=== PATIENT | female | born 1995 | race African-American/Black ===

== ENCOUNTER 2016-10-03 14:31 | Emergency (ER) | payer MEDICAID ==
[~2016-10-03] VITALS: Ht 165.1 cm; Wt 50.0 kg
[~2016-10-03 14:31] MED LIST: AMOX500C PO; DICL50TA3 PO
[2016-10-03 14:32] VITALS: BP 138/61; PULSE 78; RESP 17; TEMP 98.2; O2SAT 98
== END 2016-10-03 17:18 | disposition left against medical advice (07) ==
LOC: NED 14:31
DX: R51 Headache (principal)
CPT/HCPCS: 99281

== ENCOUNTER 2016-12-04 12:39 | Emergency (ER) | payer MEDICAID ==
[~2016-12-04] VITALS: Ht 165.1 cm; Wt 60.0 kg
[2016-12-04 12:41] VITALS: BP 104/52; PULSE 105; RESP 17; TEMP 99.2; O2SAT 99
--- NOTE | 2016-12-04 12:52 | PD ---
HPI . 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 She tells me she took Midol and it improved. She has been passing more blood than usual and large clots. She reports b/l pelvic pain L>R. She denies any history of STDs or pelvic inflammatory disease. She admits to a chance of . Patient describes the pain as crampy and rates it as a 10/10. She denies any nausea, vomiting, chest pain, shortness of breath, diarrhea, urinary changes, cold or flu symptoms. PFSH Past Medical History ?: Unknown Social History Alcohol Use: No Tobacco Use: No Allergies-Medications (Allergen,Severity, Reaction): Coded Allergies: No Known Allergies (Unverified , 12/04/16) Reported Meds & Prescriptions Reported Meds & Active Scripts Active Ciprofloxacin (Ciprofloxacin HCl) 500 Mg Tab 500 Mg PO BID 10 Days Review of Systems General / Constitutional: No: Fever Eyes: No: Visual changes HENT: No: Headaches Cardiovascular: No: Chest Pain or Discomfort Respiratory: No: Shortness of Breath Gastrointestinal: Positive: Abdominal Pain (pelvic pain l>r) Genitourinary: No: Dysuria Musculoskeletal: No: Pain Skin: No Rash Neurologic: No: Weakness Psychiatric: No: Depression Endocrine: No: Polydipsia Hematologic/Lymphatic: No: Easy Bruising Physical Exam Narrative GENERAL: AAO x 3, no acute distress, Well-nourished, well-developed patient. SKIN: Warm and dry. No visible rashes or bruising. HEAD: Normocephalic and atraumatic. EYES: No scleral icterus. No injection or drainage. EOM intact, PERRLA ENT: No nasal drainage noted. Mucous membranes pink. Airway patent. NECK: Supple, trachea midline. No JVD. CARDIOVASCULAR: Regular rate and rhythm without murmurs, gallops, or rubs. RESPIRATORY: Breath sounds equal bilaterally. No accessory muscle use. No rhonchi or rales. GASTROINTESTINAL: Abdomen soft, + Left mid abdominal and LLQ tenderness to light palpation some guarding on the left mid/lower quadrant, right is tender as well, but not as significant, normoactive bowel sounds PELVIC: Lizeth RN present: + blood in vaginal canal, no visible vaginal discharge, no cervical motion tenderness EXTREMITIES: No cyanosis or edema. BACK: Nontender without obvious deformity. No CVA tenderness. PSYCH: AAO x 3, normal affect. Data Data Last Documented VS Vital Signs Date Time Temp Pulse Resp B/P Pulse Ox O2 Delivery O2 Flow Rate FiO2 12/04/16 14:47 16 12/04/16 12:41 99.2 105 104/52 99 Orders Ketorolac Inj (Toradol Inj) (12/04/16 13:00) Complete Blood Count With Diff (12/04/16 12:59) Comprehensive Metabolic Panel (12/04/16 12:59) Urinalysis - C+S If Indicated (12/04/16 12:59) Iv Access Insert/Monitor (12/04/16 12:59) Ed Urine Pregnancytest Poc (12/04/16 12:59) Urine Culture (12/04/16 13:00) Lactic Acid Sepsis Protocol (12/04/16 13:44) Blood Culture (12/04/16 13:44) Ct Abd/Pel W Iv Contrast(Rout) (12/04/16 14:19) Oral Contrast - Adult (12/04/16 14:26) Gc And Chlamydia Pcr (12/04/16 14:54) Wet Prep Profile (12/04/16 14:54) Iohexol 350 Inj (Omnipaque 350 Inj) (12/04/16 15:41) Ceftriaxone Inj (Rocephin Inj) (12/04/16 16:15) Labs Laboratory Tests Test 12/04/16 12/04/16 12/04/16 13:00 13:58 14:50 White Blood Count 20.7 TH/MM3 Red Blood Count 4.59 MIL/MM3 Hemoglobin 13.0 GM/DL Hematocrit 38.9 % Mean Corpuscular Volume 84.9 FL Mean Corpuscular Hemoglobin 28.3 PG Mean Corpuscular Hemoglobin 33.3 % Concent Red Cell Distribution Width 13.2 % Platelet Count 278 TH/MM3 Mean Platelet Volume 7.8 FL Neutrophils (%) (Auto) 88.5 % Lymphocytes (%) (Auto) 5.4 % Monocytes (%) (Auto) 5.6 % Eosinophils (%) (Auto) 0.3 % Basophils (%) (Auto) 0.2 % Neutrophils # (Auto) 18.3 TH/MM3 Lymphocytes # (Auto) 1.1 TH/MM3 Monocytes # (Auto) 1.2 TH/MM3 Eosinophils # (Auto) 0.1 TH/MM3 Basophils # (Auto) 0.0 TH/MM3 CBC Comment DIFF FINAL Differential Comment Urine Color YELLOW Urine Turbidity HAZY Urine pH 7.5 Urine Specific [place] 1.025 Urine Protein 30 mg/dL Urine Glucose (UA) NEG mg/dL Urine Ketones 10 mg/dL Urine Occult Blood MOD Urine Nitrite NEG Urine Bilirubin NEG Urine Urobilinogen 8.0 MG/DL Urine Leukocyte Esterase LARGE Urine RBC 9 /hpf Urine WBC 61 /hpf Urine Squamous Epithelial 25 /hpf Cells Urine Bacteria RARE /hpf Urine Mucus FEW /lpf Microscopic Urinalysis Comment CULTURE INDICATED Sodium Level 137 MEQ/L Potassium Level 3.5 MEQ/L Chloride Level 105 MEQ/L Carbon Dioxide Level 23.0 MEQ/L Anion Gap 9 MEQ/L Blood Urea Nitrogen 5 MG/DL Creatinine 0.77 MG/DL Estimat Glomerular Filtration 116 ML/MIN Rate Random Glucose 95 MG/DL Calcium Level 8.8 MG/DL Total Bilirubin 0.7 MG/DL Aspartate Amino Transf 11 U/L (AST/SGOT) Alanine Aminotransferase 12 U/L (ALT/SGPT) Alkaline Phosphatase 85 U/L Total Protein 7.0 GM/DL Albumin 3.3 GM/DL Lactic Acid Level 0.8 mmol/L Clue Cells (Wet Prep) NONE SEEN Vaginal Trichomonas (Wet Prep) NONE SEEN Vaginal Yeast (Wet Prep) NONE SEEN MDM Medical Decision Making Medical Screen Exam Complete: Yes Emergency Medical Condition: Yes Medical Record Reviewed: Yes Differential Diagnosis PID, tuboovarian abscess, Narrative Course 21 yr old female here with c/o increased vaginal bleeding during menses and left mid/lower abdominal pain for 1 day. On examination she has significant tenderness to the left mid and lower quadrant with some guarding. She has no other abn. Labs and CT scan ordered: Last Impressions Abdomen/Pelvis CT 12/04/16 1419 Signed Impressions: Service Date/Time: Sunday, December 04, 2016 15:30 - CONCLUSION: No acute intra-abdominal process. Scoliosis of the thoracolumbar spine. Marciano Hernandez MD Laboratory Tests Test 12/04/16 12/04/16 12/04/16 13:00 13:58 14:50 White Blood Count 20.7 TH/MM3 Red Blood Count 4.59 MIL/MM3 Hemoglobin 13.0 GM/DL Hematocrit 38.9 % Mean Corpuscular Volume 84.9 FL Mean Corpuscular Hemoglobin 28.3 PG Mean Corpuscular Hemoglobin 33.3 % Concent Red Cell Distribution Width 13.2 % Platelet Count 278 TH/MM3 Mean Platelet Volume 7.8 FL Neutrophils (%) (Auto) 88.5 % Lymphocytes (%) (Auto) 5.4 % Monocytes (%) (Auto) 5.6 % Eosinophils (%) (Auto) 0.3 % Basophils (%) (Auto) 0.2 % Neutrophils # (Auto) 18.3 TH/MM3 Lymphocytes # (Auto) 1.1 TH/MM3 Monocytes # (Auto) 1.2 TH/MM3 Eosinophils # (Auto) 0.1 TH/MM3 Basophils # (Auto) 0.0 TH/MM3 CBC Comment DIFF FINAL Differential Comment Urine Color YELLOW Urine Turbidity HAZY Urine pH 7.5 Urine Specific [place] 1.025 Urine Protein 30 mg/dL Urine Glucose (UA) NEG mg/dL Urine Ketones 10 mg/dL Urine Occult Blood MOD Urine Nitrite NEG Urine Bilirubin NEG Urine Urobilinogen 8.0 MG/DL Urine Leukocyte Esterase LARGE Urine RBC 9 /hpf Urine WBC 61 /hpf Urine Squamous Epithelial 25 /hpf Cells Urine Bacteria RARE /hpf Urine Mucus FEW /lpf Microscopic Urinalysis Comment CULTURE INDICATED Sodium Level 137 MEQ/L Potassium Level 3.5 MEQ/L Chloride Level 105 MEQ/L Carbon Dioxide Level 23.0 MEQ/L Anion Gap 9 MEQ/L Blood Urea Nitrogen 5 MG/DL Creatinine 0.77 MG/DL Estimat Glomerular Filtration 116 ML/MIN Rate Random Glucose 95 MG/DL Calcium Level 8.8 MG/DL Total Bilirubin 0.7 MG/DL Aspartate Amino Transf 11 U/L (AST/SGOT) Alanine Aminotransferase 12 U/L (ALT/SGPT) Alkaline Phosphatase 85 U/L Total Protein 7.0 GM/DL Albumin 3.3 GM/DL Lactic Acid Level 0.8 mmol/L Clue Cells (Wet Prep) NONE SEEN Vaginal Trichomonas (Wet Prep) NONE SEEN Vaginal Yeast (Wet Prep) NONE SEEN Her WBC is significantly elevated, but she has no signs of sepsis. Lactic acid normal. Urine appears with infection. This could be a case of pyelonephritis. CT scan without any acute abn. GC pcr pending. Rocephin 1g administered in the ED. Will treat patient for pyelonephritis upon discharge. If GC pcr positive, will add azithromycin prior to discharge. 1716: GC PRC still pending; discussed with patient if positive we will notify her and call in Rx, she is in agreement. I explained condition with her and importance of taking abx. Patient verbalized understanding of instructions, questions were answered, and thanked me for their care. I advised them if their condition worsens, please return to the nearest emergency room for further care. Diagnosis Primary Impression: Left sided abdominal pain Additional Impression: Pyelonephritis Patient Instructions: General Instructions Additional Instructions: Please return to emergency department if your symptoms return or worsen. Follow up with your primary care provider. Take medications as prescribed. Med/Other Pt SpecificInfo: Prescription(s) given Scripts Ciprofloxacin 500 Mg [id number] Mg PO BID 10 Days Ref 0 Prov:Irwin Aquino MD 12/04/16 Disposition: 01 DISCHARGE HOME Condition: Stable Maria Luisa Gonzales December 04, 2016 12:52
[2016-12-04] MEDS ORDERED: KETOROLAC TROMETHAMINE 60 MG/2 ML (IM) VIAL IM ONE (13:00)
[2016-12-04 13:24] LABS: AUTOMATED NEUTROPHIL # 18.3 TH/MM3 (1.8-7.7); BASOPHIL % 0.2 % (0.0-2.0); EOSINOPHIL # 0.1 TH/MM3 (0-0.4); EOSINOPHIL % 0.3 % (0.0-4.0); HEMATOCRIT 38.9 % (35.0-46.0); HEMO FLAGS DIFF FINAL; LYMPH % 5.4 % (9.0-44.0); LYMPHOCYTE # 1.1 TH/MM3 (1.0-4.8); MEAN CELL VOLUME 84.9 FL (80.0-100.0); MEAN CORPUSCULAR HEMOGLOBIN 28.3 PG (27.0-34.0); MEAN CORPUSCULAR HGB CONC 33.3 % (32.0-36.0); MONO % 5.6 % (0.0-8.0); NEUT % 88.5 % (16.0-70.0); PLATELET COUNT 278 TH/MM3 (150-450); RED BLOOD COUNT 4.59 MIL/MM3 (4.00-5.30); RED CELL DISTRIBUTION WIDTH 13.2 % (11.6-17.2); WHITE BLOOD COUNT 20.7 TH/MM3 (4.0-11.0)
[2016-12-04 13:38] LABS: BACTERIA, URINE RARE /hpf; BLOOD, URINE MOD (NEG); COMMENT (UR) CULTURE INDICATED; CULTURE IF INDICATED CULTURE INDICATED; GLUCOSE,URINE NEG (NEG); KETONE, URINE 10 mg/dL (NEG); MUCUS URINE FEW /lpf (OCC); NITRITE,URINE NEG (NEG); PH, URINE 7.5 (5.0-8.5); SQUAMOUS EPITHELIAL CELL URINE 25 /hpf (0-5); URINE COLOR YELLOW (YELLW/STRAW)
[2016-12-04 13:52] LABS: ANION GAP 9 MEQ/L (5-15); AST (GOT) 11 U/L (16-38); BLOOD UREA NITROGEN 5 MG/DL (7-18); CHLORIDE 105 MEQ/L (98-107); GLOMERULAR FILTRATION RATE 116 ML/MIN (>89); POTASSIUM 3.5 MEQ/L (3.5-5.1); SODIUM (NA) 137 MEQ/L (136-145)
[2016-12-04 13:56] LABS: ALKALINE PHOSPHATASE 85 U/L (45-117); ALT (GPT) 12 U/L (9-42); TOTAL BILIRUBIN ADULT 0.7 MG/DL (0.2-1.0)
[2016-12-04 14:47] VITALS: RESP 16
--- NOTE | 2016-12-04 15:26 | PD ---
Physical Exam Narrative Patient was seen and examined with my workforce development assistant. On examination patient has mild to moderate tenderness on palpation left mid abdomen. No rebound tenderness. No mass. Data Data Last Documented VS Vital Signs Date Time Temp Pulse Resp B/P Pulse Ox O2 Delivery O2 Flow Rate FiO2 12/04/16 14:47 16 12/04/16 12:41 99.2 105 104/52 99 Orders Ketorolac Inj (Toradol Inj) (12/04/16 13:00) Complete Blood Count With Diff (12/04/16 12:59) Comprehensive Metabolic Panel (12/04/16 12:59) Urinalysis - C+S If Indicated (12/04/16 12:59) Iv Access Insert/Monitor (12/04/16 12:59) Ed Urine Pregnancytest Poc (12/04/16 12:59) Urine Culture (12/04/16 13:00) Lactic Acid Sepsis Protocol (12/04/16 13:44) Blood Culture (12/04/16 13:44) Ct Abd/Pel W Iv Contrast(Rout) (12/04/16 14:19) Oral Contrast - Adult (12/04/16 14:26) Gc And Chlamydia Pcr (12/04/16 14:54) Wet Prep Profile (12/04/16 14:54) Labs Laboratory Tests Test 12/04/16 12/04/16 13:00 13:58 White Blood Count 20.7 TH/MM3 Red Blood Count 4.59 MIL/MM3 Hemoglobin 13.0 GM/DL Hematocrit 38.9 % Mean Corpuscular Volume 84.9 FL Mean Corpuscular Hemoglobin 28.3 PG Mean Corpuscular Hemoglobin 33.3 % Concent Red Cell Distribution Width 13.2 % Platelet Count 278 TH/MM3 Mean Platelet Volume 7.8 FL Neutrophils (%) (Auto) 88.5 % Lymphocytes (%) (Auto) 5.4 % Monocytes (%) (Auto) 5.6 % Eosinophils (%) (Auto) 0.3 % Basophils (%) (Auto) 0.2 % Neutrophils # (Auto) 18.3 TH/MM3 Lymphocytes # (Auto) 1.1 TH/MM3 Monocytes # (Auto) 1.2 TH/MM3 Eosinophils # (Auto) 0.1 TH/MM3 Basophils # (Auto) 0.0 TH/MM3 CBC Comment DIFF FINAL Differential Comment Urine Color YELLOW Urine Turbidity HAZY Urine pH 7.5 Urine Specific [place] 1.025 Urine Protein 30 mg/dL Urine Glucose (UA) NEG mg/dL Urine Ketones 10 mg/dL Urine Occult Blood MOD Urine Nitrite NEG Urine Bilirubin NEG Urine Urobilinogen 8.0 MG/DL Urine Leukocyte Esterase LARGE Urine RBC 9 /hpf Urine WBC 61 /hpf Urine Squamous Epithelial 25 /hpf Cells Urine Bacteria RARE /hpf Urine Mucus FEW /lpf Microscopic Urinalysis Comment CULTURE INDICATED Sodium Level 137 MEQ/L Potassium Level 3.5 MEQ/L Chloride Level 105 MEQ/L Carbon Dioxide Level 23.0 MEQ/L Anion Gap 9 MEQ/L Blood Urea Nitrogen 5 MG/DL Creatinine 0.77 MG/DL Estimat Glomerular Filtration 116 ML/MIN Rate Random Glucose 95 MG/DL Calcium Level 8.8 MG/DL Total Bilirubin 0.7 MG/DL Aspartate Amino Transf 11 U/L (AST/SGOT) Alanine Aminotransferase 12 U/L (ALT/SGPT) Alkaline Phosphatase 85 U/L Total Protein 7.0 GM/DL Albumin 3.3 GM/DL Lactic Acid Level 0.8 mmol/L MDM Supervised Visit with GEOFFREY: Yes Scripts No Active Prescriptions or Reported Meds Disposition: 01 DISCHARGE HOME Condition: Stable Irwin Aquino MD December 04, 2016 15:26
[2016-12-04] MEDS ORDERED: IOHEXOL 350 MG/ML 10 ML VIAL (for RAD DIAG) IV ONE (15:41)
--- NOTE | 2016-12-04 16:03 | RADRPT ---
EXAM DATE/TIME: 12/04/2016 15:30 [facility] COMPARISON: No previous studies available for comparison. INDICATIONS : Lower abdomen pain and abdnormal vaginal bleeding for two days. IV CONTRAST: 77 cc Omnipaque 350 (iohexol) IV ORAL CONTRAST: Prescribed oral contrast ingested. RADIATION DOSE: 5.61 CTDIvol (mGy) MEDICAL HISTORY : None SURGICAL HISTORY : None. ENCOUNTER: Initial ACUITY: 2 days PAIN SCALE: 8/10 LOCATION: Bilateral lower quadrant TECHNIQUE: Volumetric scanning of the abdomen and pelvis was performed. Using automated exposure control and ad justment of the mA and/or kV according to patient size, radiation dose was kept as low as reasonably achievable to obtain optimal diagnostic quality images. FINDINGS: LOWER LUNGS: The visualized lower lungs are clear. LIVER: Homogeneous density without lesion. There is no dilation of the biliary tree. No calcified gallston es. SPLEEN: Normal size without lesion. PANCREAS: Within normal limits. KIDNEYS: Normal in size and shape. There is no mass, stone or hydronephrosis. ADRENAL GLANDS: Within normal limits. VASCULAR: There is no aortic aneurysm. BOWEL/MESENTERY: The stomach, small bowel, and colon demonstrate no acute abnormality. There is no free intraperitone al air or fluid. ABDOMINAL WALL: Within normal limits. RETROPERITONEUM: There is no lymphadenopathy. BLADDER: No wall thickening or mass. REPRODUCTIVE: Within normal limits. INGUINAL: There is no lymphadenopathy or hernia. MUSCULOSKELETAL: Scoliosis of the thoracolumbar spine is noted. CONCLUSION: No acute intra-abdominal process. Scoliosis of the thoracolumbar spine. Marciano Hernandez MD on December 04, 2016 at 16:00 Board Certified Radiologist. This report was verified electronically.
[2016-12-04] MEDS ORDERED: cefTRIAXone INJ 1,000 MG in SODIUM CHLORIDE 0.9% INJ 100 ML IV ONE (16:15)
[2016-12-04] MEDS ORDERED: CIPR500T2 PO (17:13)
[2016-12-04 18:02] LABS: CHLAMYDIA PCR NOT DETECTED (NOT DETECT); NEISSERIA PCR DETECTED (NOT DETECT)
== END 2016-12-04 17:32 | disposition home or self-care (01) ==
LOC: NEPD 12:39
DX: N12 Tubulo-interstitial nephritis, not specified as acute or chronic (principal); B96.89 Other specified bacterial agents as the cause of diseases classified elsewhere
CPT/HCPCS: 74177; 80053; 81001; 83605; 84703; 85025; 87040; 87086; 87210; 87491; 87591; 96365; 96372; 99285; J0696; J1885; Q9967